=== PATIENT | female | born 1995 | race Caucasian/White ===

== ENCOUNTER 2019-08-15 10:46 | Emergency (ER) | payer SELFPAY ==
[~2019-08-15] VITALS: Ht 177.8 cm; Wt 54.5 kg
[2019-08-15 11:29] LABS: BASOPHILS # (AUTO) 0.1 10^3/uL (0.0-0.1); BASOPHILS % (AUTO) 1 % (0-10); EOSINOPHILS # (AUTO) 0.4 10^3/uL (0.0-0.3); EOSINOPHILS % (AUTO) 8 % (0-10); HEMATOCRIT 42 % (35-52); HEMOGLOBIN 13.7 G/DL (11.5-16.0); LYMPHOCYTES # (AUTO) 1.5 X 10^3 (1.0-4.0); LYMPHOCYTES % (AUTO) 35 % (12-44); MEAN CORPUSCULAR HEMOGLOBIN 31 PG (25-34); MEAN CORPUSCULAR HGB CONC 33 G/DL (32-36); MEAN CORPUSCULAR VOLUME 96 FL (80-99); MEAN PLATELET VOLUME 9.4 FL (7.4-10.4); MONOCYTES # (AUTO) 0.6 X 10^3 (0.0-1.0); MONOCYTES % (AUTO) 13 % (0-12); NEUTROPHILS # (AUTO) 1.8 X 10^3 (1.8-7.8); NEUTROPHILS % (AUTO) 42 % (42-75); PLATELET COUNT 234 10^3/uL (130-400); WHITE BLOOD COUNT 4.3 10^3/uL (4.3-11.0)
[2019-08-15] MEDS ORDERED: NS IV 1000 ML 1,000 ML IV SCH (11:32)
[2019-08-15 11:40] LABS: ALANINE AMINOTRANSFERASE 12 U/L (0-55); ALBUMIN 4.5 GM/DL (3.2-4.5); ALKALINE PHOSPHATASE 44 U/L (40-136); AMYLASE 59 U/L (25-125); BILIRUBIN,TOTAL 0.4 MG/DL (0.1-1.0); BUN/CREATININE RATIO 13; CALCIUM 8.4 MG/DL (8.5-10.1); CARBON DIOXIDE 22 MMOL/L (21-32); CHLORIDE 111 MMOL/L (98-107); CREATININE SERUM 0.82 MG/DL (0.60-1.30); GFR ESTIMATED > 60; GLUCOSE 92 MG/DL (70-105); LIPASE 18 U/L (8-78); POTASSIUM 4.5 MMOL/L (3.6-5.0); SODIUM 141 MMOL/L (135-145); TOTAL PROTEIN 6.6 GM/DL (6.4-8.2)
--- NOTE | 2019-08-15 11:40 | ED GI ---
General Chief Complaint: Abdominal/GI Problems Stated Complaint: N/V;COUGH Nursing Triage Note: Pt amb to room #2 with c/o intermittent nausea, vomiting, et fatigue for approx x2wks. Pt reports to have experienced x2 episodes of emesis on this day. Pt deneis recent fever, chills, diarrhea, or urinary symptoms. A&OX4. Pt reports to have recently moved her from [place]. Pt reports multiple abd surgeries. Sepsis Screen: No Definite Risk History of Present Illness Date Seen by Provider: Aug 15, 2019 Time Seen by Provider: 11:10 Initial Comments 24-year-old female presents with a two-week history of nausea, vomiting, and fatigue. She had chronic history of reflux and generalized GI problems. She has not taken any medication for this. She tried to drink water this morning and vomited. Last night she was able to eat [place] fried chicken. 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 Her mom told her "she needed all 4 and they didn't want to risk taking the extras out" No history of chronic kidney problems. No healhtcare provider in this area, she moved from [place] to [place] to [place]. Over the last today she reports a nonproductive cough, and temperatures 99.8. Previous surgeries include appendectomy and bowel obstruction. Timing/Duration: Intermittent Severity/Quality: Moderate Location: Generalized Abdomen Radiation: No Radiation Associated Symptoms: Denies Symptoms, Nausea/Vomiting Allergies and Home Medications Allergies Coded Allergies: Penicillins (Verified Allergy, Unknown, 08/15/19) morphine (Verified Allergy, Unknown, 08/15/19) Patient Home Medication List Home Medication List Reviewed: Yes Review of Systems Review of Systems Constitutional: no symptoms reported, see HPI Gastrointestinal: See HPI, Abdominal Pain; Denies Constipated, Denies Diarrhea; Nausea, Poor Appetite, Vomiting Genitourinary: No Symptoms Reported, See HPI All Other Systems Reviewed Negative Unless Noted: Yes Past Qkihlct-Mlrzqd-Xdhnbz Hx Past Med/Social Hx: Reviewed Nursing Past Med/Soc Hx Patient Social History Alcohol Use: Rarely Uses Number of Drinks Today: 0 Recreational Drug Use: No Smoking Status: Current Everyday Smoker Type Used: Cigarettes 2nd Hand Smoke Exposure: Yes Recent Foreign Travel: No Contact w/Someone Who Travel: No Recent Infectious Disease Expo: No Recent Hopitalizations: No Seasonal Allergies Seasonal Allergies: No Past Medical History Surgeries: Yes (Bowel Perf. ) Appendectomy, Tonsillectomy Respiratory: No Cardiac: No Neurological: No Genitourinary: Yes (Pt states, "I have four kidneys." ) Musculoskeletal: No Endocrine: No HEENT: No Cancer: No Physical Exam Vital Signs Vital Signs - First Documented 08/15/19 10:50 Temp 36.8 Pulse 94 Resp 17 B/P (MAP) 88/74 (79) Pulse Ox 97 O2 Delivery Room Air Capillary Refill : Less Than 3 Seconds Height/Weight/BMI Height: '" Weight: lbs. oz. kg; 17.00 BMI Method: General Appearance: WD/WN, no apparent distress HEENT: PERRL/EOMI, normal ENT inspection, TMs normal, pharynx normal, other (Noted dental carries and decay) Neck: non-tender, full range of motion, supple Respiratory: chest non-tender, lungs clear, normal breath sounds, no respiratory distress Cardiovascular: normal peripheral pulses Gastrointestinal: normal bowel sounds, non tender, soft; No distended, No guarding, No rebound, No tenderness, No hernia, No mass, No hepatomegaly, No spleenomegaly Extremities: normal range of motion, non-tender, normal inspection Back: normal inspection, no CVA tenderness, no vertebral tenderness Neurologic/Psychiatric: no motor/sensory deficits, alert, normal mood/affect, oriented x 3 Skin: normal color, warm/dry Progress/Results/Core Measures Results/Orders Lab Results Laboratory Tests Test 08/15/19 11:14 08/15/19 12:10 Range/Units White Blood Count 4.3 4.3-11.0 10^3/uL Red Blood Count 4.36 4.35-5.85 10^6/uL Hemoglobin 13.7 11.5-16.0 G/DL Hematocrit 42 35-52 % Mean Corpuscular Volume 96 80-99 FL Mean Corpuscular Hemoglobin 31 25-34 PG Mean Corpuscular Hemoglobin Concent 33 32-36 G/DL Red Cell Distribution Width 14.0 10.0-14.5 % Platelet Count 234 130-400 10^3/uL Mean Platelet Volume 9.4 7.4-10.4 FL Neutrophils (%) (Auto) 42 42-75 % Lymphocytes (%) (Auto) 35 12-44 % Monocytes (%) (Auto) 13 H 0-12 % Eosinophils (%) (Auto) 8 0-10 % Basophils (%) (Auto) 1 0-10 % Neutrophils # (Auto) 1.8 1.8-7.8 X 10^3 Lymphocytes # (Auto) 1.5 1.0-4.0 X 10^3 Monocytes # (Auto) 0.6 0.0-1.0 X 10^3 Eosinophils # (Auto) 0.4 H 0.0-0.3 10^3/uL Basophils # (Auto) 0.1 0.0-0.1 10^3/uL Sodium Level 141 135-145 MMOL/L Potassium Level 4.5 3.6-5.0 MMOL/L Chloride Level 111 H 98-107 MMOL/L Carbon Dioxide Level 22 21-32 MMOL/L Anion Gap 8 5-14 MMOL/L Blood Urea Nitrogen 11 7-18 MG/DL Creatinine 0.82 0.60-1.30 MG/DL Estimat Glomerular Filtration Rate > 60 BUN/Creatinine Ratio 13 Glucose Level 92 70-105 MG/DL Calcium Level 8.4 L 8.5-10.1 MG/DL Corrected Calcium 8.0 L 8.5-10.1 MG/DL Total Bilirubin 0.4 0.1-1.0 MG/DL Aspartate Amino Transf (AST/SGOT) 16 5-34 U/L Alanine Aminotransferase (ALT/SGPT) 12 0-55 U/L Alkaline Phosphatase 44 40-136 U/L Total Protein 6.6 6.4-8.2 GM/DL Albumin 4.5 3.2-4.5 GM/DL Amylase Level 59 25-125 U/L Lipase 18 8-78 U/L Urine Color YELLOW Urine Clarity CLEAR Urine pH 6.0 5-9 Urine Specific Wallace >=1.030 1.016-1.022 Urine Protein NEGATIVE NEGATIVE Urine Glucose (UA) NEGATIVE NEGATIVE Urine Ketones NEGATIVE NEGATIVE Urine Nitrite NEGATIVE NEGATIVE Urine Bilirubin NEGATIVE NEGATIVE Urine Urobilinogen 0.2 < = 1.0 MG/DL Urine Leukocyte Esterase NEGATIVE NEGATIVE Urine RBC (Auto) TRACE-I NEGATIVE Urine RBC RARE /HPF Urine WBC NONE /HPF Urine Squamous Epithelial Cells 2-5 /HPF Urine Crystals NONE /LPF Urine Bacteria TRACE /HPF Urine Casts NONE /LPF Urine Mucus SMALL H /LPF Urine Culture Indicated NO Micro Results Microbiology 08/15/19 Influenza Types A,B Antigen (CEASAR) - Final, Complete My Orders Orders - MELODY MARTIN Amylase (08/15/19 11:24) Cbc With Automated Diff (08/15/19 11:24) Comprehensive Metabolic Panel (08/15/19 11:24) Lipase (08/15/19 11:24) Ed Iv/Invasive Line Start (08/15/19 11:32) Ns Iv 1000 Ml (Sodium Chloride 0.9%) (08/15/19 11:32) Ondansetron Injection (Zofran Injectio (08/15/19 11:45) Pantoprazole Injection (Protonix Injecti (08/15/19 11:45) Medications Given in ED Current Medications Medications Dose Ordered Sig/Temi Route Start Time Stop Time Status Last Admin Dose Admin Ondansetron HCl 4 mg ONCE ONCE IVP 08/15/19 11:45 08/15/19 11:46 DC 08/15/19 11:41 4 MG Pantoprazole 40 mg ONCE ONCE IV 08/15/19 11:45 08/15/19 11:46 DC 08/15/19 11:41 40 MG Vital Signs/I&O 08/15/19 10:50 Temp 36.8 Pulse 94 Resp 17 B/P (MAP) 88/74 (79) Pulse Ox 97 O2 Delivery Room Air Blood Pressure Mean: 79 Progress Progress Note : Time: 11:10 Progress Note Patient seen and evaluated, will obtain labs, normal saline 1 L per IV, Zofran 4 mg IV and Protonix 40 mg IV. Patient to remain nothing by mouth. 1215 patient improved UA, HCG neg. Reports to be feeling much better. Taking ice chips. Serum labs all WNL. 1230 Patient reports no further nausea, vomiting, or reflux. discharge in structions and return reviewed. Departure Impression Primary Impression: Nausea and vomiting Qualified Codes: R11.14 - Bilious vomiting Additional Impression: GERD (gastroesophageal reflux disease) Disposition: 01 HOME, SELF-CARE Condition: Improved Departure-Patient Inst. Decision time for Depature: 12:30 Patient Instructions: Acid Reflux (Gastroesophageal Reflux Disease), Adult (DC), Nausea and Vomiting, Adult (DC) Add. Discharge Instructions: Begin taking Pepcid 20 mg over the counter, twice daily. Prilosec over the counter, 1 tablet, twice daily for 2 weeks. Clear liquid diet for the next 6-8 hours, then bland diet for 2-3 days. Avoid spicy, fried or greasy foods. Establish care with a primary care provider (see list) and follow up with them, if symptoms are not improving or worsen. Return to the emergency department for new, urgent health care needs. All discharge instructions reviewed with patient and/or family. Voiced understanding. Scripts Ondansetron (Ondansetron Odt) 4 Mg Tab.rapdis 4 MG PO Q6H PRN for NAUSEA/VOMITING, #8 TAB 0 Refills Prov: MELODY MARTIN 08/15/19 Work/School Note: [employer], Work Release Form Date Seen in the Emergency Department: Aug 15, 2019 Return to Work: Aug 16, 2019 Restrictions: No Restrictions MELODY MARTIN Aug 15, 2019 11:40
[2019-08-15] MEDS ORDERED: ONDANSETRON 4 MG/2 ML (SDV) Z0FRAN IVP ONE (11:45)
[2019-08-15] MEDS ORDERED: PANTOPRAZOLE 40 MG (PROTONIX) VIAL IV ONE (11:45)
[2019-08-15 12:18] LABS: BILIRUBIN,URINE NEGATIVE (NEGATIVE); CLARITY,URINE CLEAR; COLOR,URINE YELLOW; GLUCOSE, URINE (UA) NEGATIVE (NEGATIVE); KETONES,URINE NEGATIVE (NEGATIVE); LEUKOCYTE ESTERASE ,URINE NEGATIVE (NEGATIVE); NITRITE,URINE NEGATIVE (NEGATIVE); PROTEIN,URINE NEGATIVE (NEGATIVE)
[2019-08-15 12:26] LABS: BACTERIA,URINE TRACE /HPF; RBC,URINE RARE /HPF
[2019-08-15] MEDS ORDERED: ONDA4TAB11 PO (13:26)
[2019-08-15 13:30] VITALS: BP 94/62
== END 2019-08-15 13:30 | disposition home or self-care (01) ==
LOC: ER 10:47
DX: K21.9 Gastro-esophageal reflux disease without esophagitis (principal); F17.210 Nicotine dependence, cigarettes, uncomplicated; Z88.0 Allergy status to penicillin; Z88.5 Allergy status to narcotic agent
CPT/HCPCS: 36415; 80053; 81000; 82150; 83690; 84703; 85025; 87804

== ENCOUNTER 2019-09-08 19:41 | Emergency (ER) | payer SELFPAY ==
[~2019-09-08] VITALS: Ht 177.8 cm; Wt 56.5 kg
[~2019-09-08 19:41] MED LIST: ONDA4TAB11 PO
--- OUTSIDE RECORDS SUMMARY | 2019-09-08 19:47 | XMS REPORT | Continuity of Care Document ---
Author Organization Unknown Address Unknown Phone Unavailable Allergies Active Description Code Type Severity Reaction Onset Reported/Identified Relationship to Patient Clinical Status Yes morphine [id number] Drug Allergy Unknown N/A 08/15/2019 Yes Penicillins [id number] Drug Aller gy Unknown N/A 08/15/2019 Medications There is no data. Problems Date Dx Coded Attending Type Code Diagnosis Diagnosed By 08/19/2019 MARIO, MELODY FIRESTOPPER TECHNICIAN Ot F17.210 NICOTINE DEPENDENCE, CIGARETTES, UNCOMPL 08/19/2019 MARIO, MELODY FIRESTOPPER TECHNICIAN Ot K21.9 GASTRO-ESOPHAGEAL REFLUX DISEASE WITHOUT 08/19/2019 MARIO, MELODY FIRESTOPPER TECHNICIAN Ot R11.2 NAUSEA WITH VOMITING, UNSPECIFIED 08/19/2019 MARIO, MELODY FIRESTOPPER TECHNICIAN Ot Z88.0 ALLERGY STATUS TO PENICILLIN 08/19/2019 MARIO, MELODY FIRESTOPPER TECHNICIAN Ot Z88.5 ALLERGY STATUS TO NARCOTIC AGENT STATUS 08/22/2019 MARIO, MELODY FIRESTOPPER TECHNICIAN Ot F17.210 NICOTINE DEPENDENCE, CIGARETTES, UNCOMPL 08/22/2019 MARIO, MELODY FIRESTOPPER TECHNICIAN Ot K21.9 GASTRO-ESOPHAGEAL REFLUX DISEASE WITHOUT 08/22/2019 MARIO, MELODY FIRESTOPPER TECHNICIAN Ot R11.2 NAUSEA WITH VOMITING, UNSPECIFIED 08/22/2019 MARIO, MELODY FIRESTOPPER TECHNICIAN Ot Z88.0 ALLERGY STATUS TO PENICILLIN 08/22/2019 MARIO, MELODY FIRESTOPPER TECHNICIAN Ot Z88.5 ALLERGY STATUS TO NARCOTIC AGENT STATUS Procedures There is no data. Results Test Result Range Influenza virus A and B antigen detectio n - 08/15/19 11:12 FLU RESULT NEGATIVE FOR INFLUENZA A AND B ANTIGENS BY IA NR Complete blood count (CBC) with automate d white blood cell (WBC) differential - 08/15/19 11:14 Blood leukocytes automated count (number/volume) 4.3 10*3/uL 4.3-11.0 Blood erythrocytes automated count (number/volume) 4.36 10*6/uL 4.35-5.85 Venous blood hemoglobin measurement (mass/volume) 13.7 g/dL 11.5-16.0 Blood hematocrit (volume fraction) 42 % 35-52 Automated erythrocyte mean corpuscular volume 96 [ foz_us] 80-99 Automated erythrocyte mean corpuscular h emoglobin (mass per erythrocyte) 31 pg 25-34 Automated erythrocyte mean corpuscular h emoglobin concentration measurement (mass/volume) 33 g/dL 32-36 Automated erythrocyte distribution width ratio 14. 0 % 10.0- 14.5 Automated blood platelet count (count/volume) 234 10*3/uL 130-400 Automated blood platelet mean volume measurement 9.4 [foz_us] 7.4-10.4 Automated blood neutrophils/100 leukocytes 42 % 42-75 Automated blood lymphocytes/100 leukocytes 35 % 12-44 Blood monocytes/100 leukocytes 13 % 0-12 Automated blood eosinophils/100 leukocytes 8 % 0-10 Automated blood basophils/100 leukocytes 1 % 0-10 Blood neutrophils automated count (number/volume) 1.8 10*3 1.8-7.8 Blood lymphocytes automated count (number/volume) 1.5 10*3 1.0-4.0 Blood monocytes automated count (number/volume) 0. 6 10*3 0.0-1.0 Automated eosinophil count 0.4 10*3/uL 0 .0-0.3 Automated blood basophil count (count/volume) 0.1 10*3/uL 0.0-0.1 Comprehensive metabolic panel - 08/15/19 11:14 Serum or plasma sodium measurement (moles/volume) 141 mmol/L 135-145 Serum or plasma potassium measurement (moles/volume) 4.5 mmol/L 3.6-5.0 Serum or plasma chloride measurement (moles/volume) 111 mmol/L 98-107 Carbon dioxide 22 mmol/L 21-32 Serum or plasma anion gap determination (moles/volume) 8 mmol/L 5-14 Serum or plasma urea nitrogen measurement (mass/volume ) 11 mg/dL 7-18 Serum or plasma creatinine measurement (mass/volume) 0.82 mg/dL 0.60-1.30 Serum or plasma urea nitrogen/creatinine mass ratio 13 NRG Serum or plasma creatinine measurement w ith calculation of estimated glomerular filtration rate > NRG Serum or plasma glucose measurement (mass/volume) 92 mg/dL 70-105 Serum or plasma calcium measurement (mass/volume) 8.4 mg/dL 8.5-10.1 Serum or plasma total bilirubin measurement (mass/volu me) 0.4 mg/dL 0.1-1.0 Serum or plasma alkaline phosphatase mariposa surement (enzymatic activity/volume) 44 U/L 40-136 Serum or plasma aspartate aminotransfera se measurement (enzymatic activity/volume) 16 U/L 5-34 Serum or plasma alanine aminotransferase measurement (enzymatic activity/volume) 12 U/L 0-55 Serum or plasma protein measurement (mass/volume) 6.6 g/dL 6.4-8.2 Serum or plasma albumin measurement (mass/volume) 4.5 g/dL 3.2-4.5 CALCIUM CORRECTED 8.0 mg/dL 8.5-10.1 Serum or plasma amylase measurement (enz ymatic activity/volume) - 08/15/19 11:14 Serum or plasma amylase measurement (enzymatic activit y/volume) 59 U/L 25-125 Lipase - 08/15/19 11:14 Lipase 18 U/L 8-78 Complete urinalysis with reflex to cultu re - 08/15/19 12:10 Urine color determination YELLOW NRG Urine clarity determination CLEAR NR G Urine pH measurement by test strip 6.0 5-9 Specific gravity of urine by test strip >= 1.016-1.022 Urine protein assay by test strip, semi-quantitative NEGATIVE NEGATIVE Urine glucose detection by automated test strip NE GATIVE NEGATIVE Erythrocytes detection in urine sediment by light micr oscopy TRACE-I NEGATIVE Urine ketones detection by automated test strip NE GATIVE NEGATIVE Urine nitrite detection by test strip NEGATIVE NEGATIVE Urine total bilirubin detection by test strip NEGA TIVE NEGATIVE Urine urobilinogen measurement by automated test strip (mass/volume) 0.2 mg/dL < = 1.0 Urine leukocyte esterase detection by dipstick NEG ATIVE NEGATIVE Automated urine sediment erythrocyte cou nt by microscopy (number/high power field) RARE NRG Automated urine sediment leukocyte count by microscopy (number/high power field) NONE NRG Bacteria detection in urine sediment by light microsco py TRACE NRG Squamous epithelial cells detection in u rine sediment by light microscopy 2-5 NRG Crystals detection in urine sediment by light microsco py NONE NRG Casts detection in urine sediment by light microscopy NONE NRG Mucus detection in urine sediment by light microscopy SMALL NRG Complete urinalysis with reflex to culture NO NRG Encounters ACCT No. Visit Date/Time Discharge Status Pt. Type Provider Facility Loc./Unit Complaint [id number] 08/15/2019 10:47:00 020 13:30:00 DIS Outpatient MELODY MARTIN a [facility] ER N/V;COUGH
--- NOTE | 2019-09-08 20:26 | ED Cough/URI ---
General Chief Complaint: Abdominal/GI Problems Stated Complaint: COUGH / CHEST PAIN / BILAT EAR PAIN Nursing Triage Note: C/O COUGH AND BILATERAL EAR PAIN ALSO STATES CHEST HURTS WHEN SHE "COUGHS OR BREATHE TOO DEEP" Sepsis Screen: No Definite Risk Source: patient Exam Limitations: no limitations History of Present Illness Date Seen by Provider: Sep 08, 2019 Time Seen by Provider: 20:04 Initial Comments The patient arrives to the ER by private conveyance at the rest of her mother because she has had 2 days of progressively worsening fatigue, malaise, cough, pleuritic chest pain on deep inspiration or cough, subjective fevers and chills. She has no history of respiratory disease. She's had no known sick contacts. She works at [employer]. She's not having any nausea vomiting diarrhea rash. She did take some ibuprofen earlier today which helped with her body aches. No known exposures to COVID19 for influenza. No travel besides to [facility] in the past 2 weeks. Her cough has been nonproductive. Allergies and Home Medications Allergies Coded Allergies: Penicillins (Verified Allergy, Unknown, 08/15/19) morphine (Verified Allergy, Unknown, 08/15/19) Home Medications Benzonatate 100 Mg Capsule, 100 MG PO Q6H PRN for COUGH Prescribed by: LISA QUILES on 09/08/192033 Ondansetron 4 Mg Tab.rapdis, 4 MG PO Q6H PRN for NAUSEA/VOMITING Prescribed by: MELODY MARTIN on 08/15/19 1326 Patient Home Medication List Home Medication List Reviewed: Yes Review of Systems Review of Systems Constitutional: chills, fever (subjective), malaise, weakness EENTM: ear pain (left then right), nose congestion; No ear discharge, No mouth pain, No mouth swelling, No nose pain Respiratory: cough; No phlegm; short of breath; No wheezing Cardiovascular: see HPI, chest pain (pleuritic); No edema Gastrointestinal: No abdominal pain, No nausea, No vomiting Genitourinary: No discharge, No dysuria Musculoskeletal: No back pain, No joint pain Skin: No pruritus, No rash Psychiatric/Neurological: Denies Headache, Denies Numbness All Other Systems Reviewed Negative Unless Noted: Yes Past Eygkjju-Pltzix-Eypnmc Hx Patient Social History Alcohol Use: Denies Use Recreational Drug Use: No Smoking Status: Current Everyday Smoker Type Used: Cigarettes 2nd Hand Smoke Exposure: Yes Recent Foreign Travel: No Contact w/Someone Who Travel: No Recent Infectious Disease Expo: No Recent Hopitalizations: No Physical Abuse: No Sexual Abuse: No Mistreated: No Fear: No Seasonal Allergies Seasonal Allergies: No Past Medical History Surgeries: Yes (Bowel Perf. ) Abdominal, Appendectomy, Tonsillectomy Respiratory: No Cardiac: No Neurological: No : No Last Menstrual Period: Aug 18, 2019 Genitourinary: Yes (Pt states, "I have four kidneys." ) Gastrointestinal: No Musculoskeletal: No Endocrine: No HEENT: No Cancer: No Psychosocial: No Integumentary: No Physical Exam Vital Signs - First Documented 09/08/19 09/08/19 19:55 20:07 Temp 36.8 Pulse 74 Resp 18 B/P (MAP) 110/58 (75) Pulse Ox 98 O2 Delivery Room Air Capillary Refill : Less Than 3 Seconds Height: '" Weight: lbs. oz. kg; 17.00 BMI Method: General Appearance: WD/WN, no apparent distress Eyes: Bilateral Eye Normal Inspection, Bilateral Eye PERRL, Bilateral Eye EOMI HEENT: PERRL/EOMI, normal ENT inspection, pharynx normal (mildly dry without tonsils or exudate), TM abnormal (R) (bilateral TMs with clear mucoid effusion and some mild retraction without erythema in the canal or TM. No loss of landmarks of the tympanic membrane.), TM abnormal (L), pharyngeal erythema (mild injection and retropharynx) Neck: non-tender, full range of motion, supple, normal inspection Respiratory: lungs clear, normal breath sounds, no respiratory distress, no accessory muscle use Cardiovascular: normal peripheral pulses, regular rate, rhythm Neurologic/Psychiatric: alert, normal mood/affect, oriented x 3 Skin: normal color, warm/dry Progress/Results/Core Measures Suspected Sepsis Recent Fever Within 48 Hours: Yes Infection Criteria Present: None New/Unexplained Altered Menta: No Sepsis Screen: No Definite Risk SIRS Temperature: Pulse: 74 Respiratory Rate: 18 Blood Pressure 110 /58 Mean: 75 Results/Orders Lab Results Laboratory Tests Test 09/08/19 20:16 Range/Units Group A Streptococcus Screen NEGATIVE NEGATIVE Micro Results Microbiology 09/08/19 Influenza Types A,B Antigen (CEASAR) - Final, Complete My Orders Orders - LISA QUILES Influenza A And B Antigens (09/08/19 20:18) Rapid Strep A Screen (09/08/19 20:18) Vital Signs/I&O 09/08/19 09/08/19 19:55 20:07 Temp 36.8 Pulse 74 Resp 18 B/P (MAP) 110/58 (75) Pulse Ox 98 O2 Delivery Room Air Capillary Refill : Less Than 3 Seconds Blood Pressure Mean: 75 Progress Note : Time: 20:24 Progress Note The patient has aseptic vital signs appears well has good oxygenation. Plan to get an influenza as it has only been going on for 2 days and then Tamiflu may be beneficial. She has a bit of sore throat so we'll check a rapid strep as well. She does not merit any inpatient management at this time. Against medication on appropriate follow-up as well as give her some handouts talk about coronavirus that she can share with her friends and family. Departure Impression Primary Impression: Viral upper respiratory tract infection with cough Disposition: HOME, SELF-CARE Condition: Stable Departure-Patient Inst. Decision time for Depature: 20:47 Referrals: NO,LOCAL PHYSICIAN (PCP/Family) Primary Care Physician Patient Instructions: COVID19, Cough, Runny Nose, and the Common Cold (DC) Add. Discharge Instructions: Drink plenty of fluids and use Tylenol and ibuprofen for body aches or fever. Vicks or Mentholatum can be helpful. Tessalon Perles 1 capsule every 6 hours as needed for coughing. All discharge instructions reviewed with patient and/or family. Voiced understanding. Scripts Benzonatate (TESSALON PERLES) 100 Mg Capsule 100 MG PO Q6H PRN for COUGH, #30 CAP 0 Refills Prov: LISA QUILES 09/08/19 Work/School Note: Work Release Form Date Seen in the Emergency Department: Sep 08, 2019 Return to Work: Sep 10, 2019 Restrictions: No Restrictions LISA QUILES Sep 08, 2019 20:26
[2019-09-08] MEDS ORDERED: BENZ100C18 PO (20:34)
[2019-09-08 20:54] VITALS: BP 110/58
== END 2019-09-08 20:55 | disposition home or self-care (01) ==
LOC: EDUNIT# 19:41 → ER 19:42
DX: J06.9 Acute upper respiratory infection, unspecified (principal); R05 Cough; F17.210 Nicotine dependence, cigarettes, uncomplicated; Z90.49 Acquired absence of other specified parts of digestive tract; Z90.89 Acquired absence of other organs
CPT/HCPCS: 87430; 87804

== ENCOUNTER 2019-12-23 13:21 | Emergency (ER) | payer SELFPAY ==
[~2019-12-23] VITALS: Ht 177.8 cm; Wt 54.4 kg
[~2019-12-23 13:21] MED LIST changes: +BENZ100C18 PO
[2019-12-23 13:35] VITALS: BP 111/60
--- NOTE | 2019-12-23 13:48 | ED GU-Female ---
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[employer]) , SHE HAD A BRIEF EPISODE WHERE SHE "FELT FAINT" STATES SHE DID 2 TESTS AND ONE WAS "FAINT POSITIVE" AND ONE WAS POSITIVE" STATES HER LMP WAS 11/14/19-11/18/19 AND WAS NORMAL STATES SHE STARTED HER PERIOD THIS MORNING PT IS HERE FOR A TEST PCP: NONE Allergies and Home Medications Allergies Coded Allergies: Penicillins (Verified Allergy, Unknown, 08/15/19) morphine (Verified Allergy, Unknown, 08/15/19) Home Medications Benzonatate 100 Mg Capsule, 100 MG PO Q6H PRN for COUGH Prescribed by: LISA QUILES on 09/08/192033 Ondansetron 4 Mg Tab.rapdis, 4 MG PO Q6H PRN for NAUSEA/VOMITING Prescribed by: MELODY MARTIN on 08/15/19 1326 Patient Home Medication List Home Medication List Reviewed: Yes Review of Systems Review of Systems Constitutional: see HPI Respiratory: no symptoms reported Cardiovascular: no symptoms reported Gastrointestinal: no symptoms reported Genitourinary: no symptoms reported LMP: Dec 23, 2019 Musculoskeletal: no symptoms reported Past Gvjbdkl-Bylmge-Xkiald Hx Past Med/Social Hx: Reviewed and Corrections made Patient Social History Smoking Status: Current Everyday Smoker Type Used: Cigarettes 2nd Hand Smoke Exposure: Yes Recent Hopitalizations: No Seasonal Allergies Seasonal Allergies: No Past Medical History Surgeries: Yes (Bowel Perf. ) Abdominal, Appendectomy, Tonsillectomy Respiratory: No Cardiac: No Neurological: No Genitourinary: Yes (Pt states, "I have four kidneys." ) Gastrointestinal: No Musculoskeletal: No Endocrine: No HEENT: No Cancer: No Psychosocial: No Integumentary: No Physical Exam Vital Signs Vital Signs - First Documented 12/23/19 13:35 Temp 37.0 Pulse 83 Resp 17 B/P (MAP) 111/60 (77) Pulse Ox 99 O2 Delivery Room Air Capillary Refill : Height, Weight, BMI Height: '" Weight: lbs. oz. kg; 17.00 BMI Method: General Appearance: thin Cardiovascular: regular rate, rhythm Respiratory: normal breath sounds, no respiratory distress Gastrointestinal: non tender Extremities: normal inspection Neurologic/Psychiatric: alert, oriented x 3 Skin: normal color, warm/dry Progress/Results/Core Measures Suspected Sepsis SIRS Temperature: Pulse: Respiratory Rate: Blood Pressure / Mean: Results/Orders My Orders Orders - PANCHO ENAMORADO DO Urine Bedside (12/23/19 13:43) Vital Signs/I&O 12/23/19 13:35 Temp 37.0 Pulse 83 Resp 17 B/P (MAP) 111/60 (77) Pulse Ox 99 O2 Delivery Room Air Capillary Refill : Progress Note : Progress Note PT STATES SHE "NEEDS A NOTE SAYING SHE IS NOT " "TO GIVE TO "HIM-THE HUY" --ADVISED HER THAT I WOULD NOT BE WRITING ANY SUCH "NOTE" Departure Impression Primary Impression: NORMAL MENSTRAL CYCLE Disposition: 01 HOME, SELF-CARE Condition: Stable Departure-Patient Inst. Referrals: NO,LOCAL PHYSICIAN (PCP/Family) Primary Care Physician Patient Instructions: Menstruation PANCHO ENAMORADO DO Dec 23, 2019 13:48
--- OUTSIDE RECORDS SUMMARY | 2019-12-23 14:28 | XMS REPORT | Continuity of Care Document ---
Author Organization Unknown Address Unknown Phone Unavailable Allergies Active Description Code Type Severity Reaction Onset Reported/Identified Relationship to Patient Clinical Status Yes morphine [id number] Drug Allergy Unknown N/A 08/15/2019 Yes Penicillins [id number] Drug Aller gy Unknown N/A 08/15/2019 Medications There is no data. Problems Date Dx Coded Attending Type Code Diagnosis Diagnosed By 08/19/[address] PHOTOGRAPHER Ot F17.210 NICOTINE DEPENDENCE, CIGARETTES, UNCOMPL 08/19/2019 MARIO, MELODY STREET PHOTOGRAPHER Ot K21.9 GASTRO-ESOPHAGEAL REFLUX DISEASE WITHOUT 08/19/2019 MARIO, MELODY STREET PHOTOGRAPHER Ot R11.2 NAUSEA WITH VOMITING, UNSPECIFIED 08/19/2019 MARIO, MELODY STREET PHOTOGRAPHER Ot Z88.0 ALLERGY STATUS TO PENICILLIN 08/19/2019 MARIO, MELODY STREET PHOTOGRAPHER Ot Z88.5 ALLERGY STATUS TO NARCOTIC AGENT STATUS 08/22/2019 MARIO, MELODY STREET PHOTOGRAPHER Ot F17.210 NICOTINE DEPENDENCE, CIGARETTES, UNCOMPL 08/22/2019 MARIO, MELODY STREET PHOTOGRAPHER Ot K21.9 GASTRO-ESOPHAGEAL REFLUX DISEASE WITHOUT 08/22/2019 MARIO, MELODY STREET PHOTOGRAPHER Ot R11.2 NAUSEA WITH VOMITING, UNSPECIFIED 08/22/2019 MARIO, MELODY STREET PHOTOGRAPHER Ot Z88.0 ALLERGY STATUS TO PENICILLIN 08/22/2019 MARIO, MELODY STREET PHOTOGRAPHER Ot Z88.5 ALLERGY STATUS TO NARCOTIC AGENT STATUS 09/14/2019 LISA QUILES MD Ot F17.210 NICOTINE DEPENDENCE, CIGARETTES, UNCOMPL 09/14/2019 LISA QUILES MD Ot J06. 9 ACUTE UPPER RESPIRATORY INFECTION, UNSPE 09/14/2019 LISA QUILES MD Ot R05 COUGH 09/14/2019 LISA QUILES MD Ot Z90. 49 ACQUIRED ABSENCE OF OTHER SPECIFIED PART 09/14/2019 LISA QUILES MD Ot Z90. 89 ACQUIRED ABSENCE OF OTHER ORGANS Procedures There is no data. Results Test Result Range Influenza virus A and B antigen detectio n - 08/15/19 11:12 FLU RESULT NEGATIVE FOR INFLUENZA A AND B ANTIGENS BY BANNER Complete blood count (CBC) with automate d [...] urinalysis with reflex to culture NO NRG Streptococcus pyogenes antigen detection - 09/08/19 20:16 Streptococcus pyogenes antigen detection NEGATIVE NEGATIVE Influenza virus A and B antigen detectio n - 09/08/19 20:16 FLU RESULT NEGATIVE FOR INFLUENZA A AND B ANTIGENS BY IA NRG Bacterial throat culture - 09/08/19 20:1 6 Bacterial throat culture NBS NRG Encounters ACCT No. Visit Date/Time Discharge Status Pt. Type Provider Facility Loc./Unit Complaint [id number] 09/08/2019 19:42:00 20:55:00 DIS Outpatient LISA QUILES MD [facility] ER COUGH / CHEST PAIN / BI LAT EAR PAIN [id number] 08/15/2019 10:47:00 13:30:00 DIS Outpatient MELODY MARTIN a [facility] ER N/V;COUGH
== END 2019-12-23 14:06 | disposition home or self-care (01) ==
LOC: EDUNIT# 13:21 → ER 13:22
DX: Z71.1 Person with feared health complaint in whom no diagnosis is made (principal); Z88.0 Allergy status to penicillin; Z88.5 Allergy status to narcotic agent
CPT/HCPCS: 84703; 99282